=== PATIENT | female | born 1980 | race Caucasian/White ===

== ENCOUNTER 2021-11-24 19:30 | Inpatient (IN) | payer MEDICAID, SELFPAY ==
[2021-11-24] VITALS (8 sets, daily range): BP systolic 127–150; BP diastolic 63–68; PULSE 75–95; TEMP 36.3–36.9; O2SAT 99; BMI 34.5
[2021-11-24] MEDS: Lactated Ringers 1,000 ML 50 ML IV (21:15)
[2021-11-24 21:35] LABS: Absolute Lymphocyte Count 1.13 X10^3/uL (0.83-4.51); Absolute Neutrophil Count 5.1 X10^3/uL (2.0-7.7); Basophil# 0.01 X10^3/uL; Basophil% 0.1 % (0-1); Eosinophil# 0.07 X10^3/uL; Hematocrit 31.6 % (37-47); Hemoglobin 10.2 g/dL (12.0-15.0); Lymphocyte # 1.13 X10^3/ul (0.83-4.51); Lymphocyte % 16.7 % (19-41); Mean Corp Hgb Conc 32.3 g/dL (32-36); Mean Corpuscular Hgb 26.8 pg (27.0-32.0); Mean Corpuscular Volume 83.2 fL (81-99); Mean Platelet Vol. 11.8 fl (6.2-12.0); Monocyte# 0.44 X10^3/uL; Monocyte% 6.5 % (0-10); NRBC Flagged by Analyzer 0 % (0-5); Neutrophil # 5.09 X10^3/uL (2.7-7.7); Neutrophil % 75.4 % (47-70); Platelet Count 229 K/mm3 (150-450); RBC Distribution Width CV 14.3 % (11.6-14.6); RBC Distribution Width SD 43.5 fl (35.1-43.9); White Blood Count 6.8 K/mm3 (4.4-11.0)
[2021-11-24] MEDS: 0.9% Normal Saline Single 100 ML IV.SOLN. INTRA-UTER (21:51)
--- NOTE | 2021-11-24 22:16 | HP.PCM.OB_ITS ---
HPI - General General Date of Admission: 11/24/21 HPI Narrative MACHELLE NELSON, is a 41 F who presents tonight for sandoval catheter placement and induction of labor tomorrow morning. She is currently 38.6 weeks gestation and complicated by Advanced maternal age of multigravida, hypothyroidism, and history of delivery with first . Maternal Data Information PASCALE Calculator Estimated Delivery Date Method Current WG Current Estimate 12/02/21 Manual 38w 6d PFSH PFS Medical History Thyroid disorder Home Medications aspirin 81 mg chewable tablet 1 tab Check with primary doctor 11/24/21 [History Last Taken Unknown] loratadine 10 mg tablet (Claritin) 10 mg PO DAILY Check with primary doctor 11/24/21 [History Last Taken Unknown] omeprazole 10 mg capsule,delayed release mg Check with primary doctor 11/24/21 [History Last Taken Unknown] ijbvwqla-rki-Bn-FA 1 mg tablet tab PO Check with primary doctor 11/24/21 [History Last Taken Unknown] Allergy/AdvReac Type Severity Reaction Status Date / Time No Known Allergies Allergy Verified 11/24/21 20:44 Surgical History (Updated 11/24/21 @ 22:07 by Layne Lee) History of gynecologic surgery Social History Smoking Status: Never smoker History Elective abortions Hx Para 2 Spontaneous abortions Hx # Term Pregnancies Ectopic pregnancies Hx # Pregnancies Multiple births # of living children NST FHR Rate Baby A Baseline: 110 Variability:: Moderate Accelerations:: 15 x 15 Decelerations:: None NST Reactive:: Yes Uterine Activity:: irregular contractions approximately 1-4 minutes ROS Eyes Eyes: Denies blurry vision, change in vision or spots in vision ENT HEENT: Denies dizziness or headache(s) Cardiovascular Cardiovascular: Denies abdominal pain, chest pain or dyspnea Respiratory/Chest Respiratory/Chest: Denies cough, dyspnea, shortness of breath at rest or shortness of breath with exertion Gastrointestinal Gastrointestinal: Denies abdominal pain, diarrhea or vomiting Genitourinary Genitourinary: Denies change in urinary stream, difficulty urinating or dysuria Musculoskeletal Musculoskeletal: Reports none Integumentary Integumentary: Denies rash Neurologic Neurologic: Denies dizziness, headache(s), memory loss or weakness Psychiatric Psychiatric: Reports none Vital Signs Vital Signs Vital Signs: 11/24/21 20:33 11/24/21 20:33 11/24/21 20:37 Temperature Temperature Source Pulse Rate 95 Blood Pressure 150/68 H BP Systolic 150 BP Diastolic 68 Pulse Ox 99 11/24/21 20:37 11/24/21 20:38 11/24/21 20:38 Temperature Temperature Source Pulse Rate 87 88 Blood Pressure BP Systolic BP Diastolic Pulse Ox 99 11/24/21 20:32 11/24/21 20:32 11/24/21 20:50 Temperature 98.5 F Temperature Source Temporal Pulse Rate Blood Pressure 127/63 H BP Systolic 127 BP Diastolic 63 Pulse Ox 11/24/21 20:50 11/24/21 21:48 11/24/21 21:48 Temperature Temperature Source Pulse Rate 76 75 Blood Pressure BP Systolic BP Diastolic Pulse Ox 99 Weight Weight: 195 lb Body Mass Index (BMI) 34.5 Physical Exam Const alert, oriented x3 and no apparent distress General Appearance: cooperative Orientation / Consciousness: awake Exam Limitations: no limitations HEENT normocephalic Head and Scalp: normal to inspection Eyes General Eye: normal appearance of both eyes Neck full ROM and no lymphadenopathy Lymph Lymphatic: no lymphadenopathy noted Chest inspection of chest normal Resp normal respiratory effort, normal air movement and clear to auscultation bilaterally Effort and Inspection: able to speak in complete sentences and symmetric chest movement Cardio regular rate and regular rhythm GI normal to inspection, nondistended, normoactive bowel sounds Manual OB Exam: presentation cephalic, dilated 4, effaced 60 and station - 3 and 0 Back/Spine normal ROM Extremity full ROM and no calf tenderness Skin no rashes or lesions noted General Skin Exam: no breakdown Neuro oriented x3 and CN's II-XII intact bilaterally Psych mental status grossly normal and thought process normal Labs Labs Labs: Blood Type Pending Antibody Screen Pending Hct 31.6 % (37-47) L Hgb 10.2 g/dL (12.0-15.0) L A + Rubella- immune HB neg HC neg RPR- NR HIV- NR GBS - negative Assessment & Plan (1) Hypothyroid in , antepartum: (2) Advanced maternal age (AMA), 40 years or greater: (3) Multigravida of advanced maternal age: PLAN: Plan Admit to labor and delivery CE in office this week- /-[address] sand[address] but cervical assessment is now / Start IV fluids and run per orders Patient to do position changes, walking in hallways and nipple stimulation Pain medications/ epidural if indicated Recheck CE in 2-[address] Osorio aware of admission and plan of care
[2021-11-25] VITALS (49 sets, daily range): BP systolic 95–143; BP diastolic 51–86; PULSE 65–213; RESP 16; TEMP 36.3–37; O2SAT 85–100
[2021-11-25] MEDS: LACTATED RINGERS 500 ML 999 ML IV ×2 (04:50→05:42)
[2021-11-25] MEDS: Amnioinfusion- 0.9% NS 1,000 ML IV.SOLN. 1000 ML INTRA-UTER (05:40)
[2021-11-25] MEDS: fentaNYL-bupivacaine (epidural) 100 ML BAG EPIDURAL (06:03)
--- NOTE | 2021-11-25 07:04 | PCM.PN.BLA ---
Progress Note Patient comfortable with epidural. Amnioinfusion running for variable decelerations. Cat. 2 tracing with good variability. Physical Exam Const alert and no apparent distress General Appearance: cooperative and comfortable Exam Limitations: no limitations HEENT normocephalic Eyes General Eye: normal appearance of both eyes Neck full ROM General: normal visual inspection Chest Chest: symmetrical chest wall rise Resp normal respiratory effort and normal air movement Effort and Inspection: symmetric chest movement Auscultation: clear to auscultation bilaterally Cardio regular rate and regular rhythm GI normal to inspection, nondistended, normoactive bowel sounds Back/Spine normal ROM Extremity full ROM and no calf tenderness General Extremity: normal exam except as noted Skin no rashes or lesions noted Neuro CN's II-XII intact bilaterally Psych mental status grossly normal Assessment & Plan Assessment/Plan (1) Advanced maternal age (AMA), 40 years or greater: (2) Multigravida of advanced maternal age: (3) Hypothyroid in , antepartum: (4) Variable heart rate decelerations, antepartum: PLAN: Plan Cat. 2 tracing CE 780/0 Amnioinfusion running at 150 mg /hr Dr. Osorio in route to evaluate patient
[2021-11-25] MEDS: Lactated Ringers 1,000 ML 200 ML IV (07:11)
[2021-11-25] MEDS: Oxytocin 30 units/NS 500 ml 30 UNITS/500 ML IV.SOLN 334 UNITS IV (08:18)
--- NOTE | 2021-11-25 08:50 | EX.PCM.OBRPT ---
Assessment & Plan (1) Variable heart rate decelerations, antepartum: (2) Multigravida of advanced maternal age: (3) Advanced maternal age (AMA), 40 years or greater: (4) (spontaneous vaginal delivery): (5) Hypothyroid in , antepartum: Maternal Data Information PASCALE Calculator Estimated Delivery Date Method Current WG Current Estimate 12/02/21 Manual 39w 0d Vaginal Delivery Maternal Presentation Maternal Presentation: Medically Indicated Induction Maternal Presentation: at 39.0 weeks gestation for induction of labor for AMA (Age 41). Type of Induction: Amniotomy Medical Reason for Induction: - (Advanced maternal age ) Operative Information Date of Procedure: 11/25/21 Pre-Operative Diagnosis: Term gestation, Induction of labor Post-Operative Diagnosis: , live female infant Surgery / Procedure Performed: Spontaneous Vaginal Delivery Type of Anesthesia: Epidural Drain: Landry to straight drain Estimated Blood Loss: 200 Time of Delivery: 08:15 Findings Description of Procedure: Patient moved to OR for deceleration. Heart rate recovered. CE - complete +2 station. Decision made to push while in OR. Patient pushed well with contractions. Delivery of head with loose nuchal cord easily reduced followed immediately by infant body without traction. Vigorous female placed on maternal abdomen and was attended to by nursing staff. Pitocin IV started for active management of the third stage of labor. 3 vessel cord clamped and cut by FOB after 2 minute delay. Infant taken to warmer for evaluation. Placenta delivered spontaneously and intact. Vaginal sweep completed by me. Vagina and perineum intact. EBL [address]. APGARS 7/9. Dr. Osorio on unit during delivery. Presentation: Vertex and LEDA Amniotic Membrane Rupture Type: Artificial Time of Membrane Rupture: 0021 Amniotic Fluid Description: Clear Placental Delivery Description: Spontaneous Placenta Disposition: patient to take home Cord Vessel Description: 3 Vessels Cord Entanglement: Around neck x 1, loose Nuchal Cord Compression: Without compression Infant A Gender: Female (1 minute): 7 (5 minute): 9 Delayed Cord Clamping: Yes Post Vaginal Delivery Medications Given After Delivery: IV Pitocin Episiotomy Description: None Laceration: None Complication Complications: None
[2021-11-25] MEDS: Acetaminophen 500 MG Tablet 1000 MG PO ×2 (16:20→22:24)
[2021-11-25] MEDS: Naproxen 500 MG Tablet PO (18:08)
[2021-11-26 00:20] VITALS: BP 110/51; PULSE 72; RESP 14; TEMP 36.6
[2021-11-26 04:05] VITALS: BP 110/53; PULSE 74; RESP 16; TEMP 36.5
--- NOTE | 2021-11-26 04:48 | NURSING ---
Charting done by Donald RN reviewed by Jeanine RN
[2021-11-26] MEDS: Naproxen 500 MG Tablet PO (06:04)
[2021-11-26] MEDS: Levothyroxine 175 MCG Tablet PO (06:04)
--- NOTE | 2021-11-26 06:20 | PCM.PN.OB ---
Subjective Subjective Patient seen at bedside. Ambulating and voiding without difficulty. Denies headache, dizziness, CP, or SOB. Lochia decreasing. with minimal support. Desires discharge home today. Objective Data Objective Data Vital Signs: Vital Signs Temp Pulse Resp BP Pulse Ox O2 Del Method 97.7 F L 74 16 110/53 L 98 Room Air 11/26/21 04:05 11/26/21 04:05 11/26/21 04:05 11/26/21 04:05 11/25/21 20:27 11/25/21 20:27 Oxygen Delivery Method Room Air Weight: 195 lb Body Mass Index (BMI) 34.5 Intake & Output: Intake and Output for Last 24 Hours 11/24/21 11/25/21 11/26/21 23:59 23:59 23:59 Intake Total 2365.00 / 2365.00 Output Total 2900 / 2900 Balance -535.00 / -535.00 Lab / Micro Data Result Diagrams: 11/24/21 21:15 Micro: Microbiology 11/24/21 22:15 Nasal Secretion SARS-CoV-2 Antigen (Rapid) - Final ROS Eyes Eyes: Denies blurry vision, change in vision or spots in vision ENT HEENT: Denies dizziness or headache(s) Cardiovascular Cardiovascular: Denies abdominal pain, chest pain or dyspnea Respiratory/Chest Respiratory/Chest: Denies cough, dyspnea, shortness of breath at rest or shortness of breath with exertion Gastrointestinal Gastrointestinal: Denies abdominal pain, diarrhea or vomiting Genitourinary Genitourinary: Denies change in urinary stream, difficulty urinating or dysuria Musculoskeletal Musculoskeletal: Reports none Integumentary Integumentary: Denies rash Neurologic Neurologic: Denies dizziness, headache(s), memory loss or weakness Physical Exam Const alert and no apparent distress General Appearance: cooperative and comfortable Exam Limitations: no limitations HEENT normocephalic Eyes General Eye: normal appearance of both eyes Neck full ROM General: normal visual inspection Chest Chest: symmetrical chest wall rise Resp normal respiratory effort and normal air movement Effort and Inspection: symmetric chest movement Auscultation: clear to auscultation bilaterally Cardio regular rate and regular rhythm GI normal to inspection, nondistended, normoactive bowel sounds Back/Spine normal ROM Extremity full ROM and no calf tenderness General Extremity: normal exam except as noted Skin no rashes or lesions noted Neuro CN's II-XII intact bilaterally Psych mental status grossly normal Assessment & Plan (1) (spontaneous vaginal delivery): (2) Hypothyroid in , antepartum: (3) Care and examination of lactating mother: PLAN: Plan PPD 2 Routine care support D/C home with follow up in office
--- NOTE | 2021-11-26 06:24 | DCINST_ITS ---
Discharge Instructions Diet Discharge Diet: No restrictions Activity Discharge Activity: Return to Normal Activity, May Shower and May Take a Tub Bath May resume sexual activity in: 4-6 weeks Weight Bearing Status: Weight bearing as tolerated Dressing / Incision Call your doctor if you observe: Inability to urinate, Using more than 1 pad per hour, Shortness of breath, Dizziness, Swelling in the ankles, Chest pain, Calf discomfort and Uncontrolled pain Follow Up Care Please Follow Up With: Camila Rinaldi CNM When: Within 10 days Test Results: Test results from this visit will be discussed in further detail at your follow- up appointment, if applicable. Discharge Plan Admission Admit Date/Time: 11/24/21 19:30 Primary Reason for Your Visit: Labor and Drlivery Attending Provider: Camila Rinaldi Primary Care Provider: WILVER PETERSON Discharge Orders/Prescriptions Prescriptions: Continued lzqjykau-iah-[id number]-FA 1 mg Tablet PO Discontinued omeprazole 10 mg Capsule,Delayed Release(Dr/Ec) aspirin [Baby Aspirin] 81 mg Tablet,Chewable 1 tab loratadine [Claritin] 10 mg Tablet 10 mg PO DAILY Referrals / Follow Up: WILVER PETERSON [Other] Disposition Disposition (needs filled in before D/C Order can be placed): Home, Self Care
[2021-11-26 08:34] VITALS: BP 107/66; PULSE 66; RESP 18; TEMP 36.4
== END 2021-11-26 10:40 | disposition home or self-care (01) | DRG 560 ==
PROVIDERS: Admitting Provider Advanced Practice Midwife; Visit Provider Advanced Practice Midwife
DX: O76 Abnormality in fetal heart rate and rhythm complicating labor and delivery (principal); Z37.0 Single live birth; E03.9 Hypothyroidism, unspecified; Z3A.38 38 weeks gestation of pregnancy; O99.284 Endocrine, nutritional and metabolic diseases complicating childbirth; Z79.82 Long term (current) use of aspirin; Z28.310 Unvaccinated for COVID-19; Z28.9 Immunization not carried out for unspecified reason
CPT/HCPCS: 59025; 59050; 76815; 85025; 86850; 86900; 86901; 87811; 99218; J7030; J7120; G0378

== ENCOUNTER 2022-11-15 11:23 | Day surgery (SDC) | payer MEDICAID, SELFPAY ==
--- NOTE | 2022-11-14 16:36 | PCM.HP.BLA ---
History and Physical Date of Admission: 11/15/22 Pre-Op History and Physical ? HPI: The patient is a 42 year old female presenting for pre-operative visit. She is scheduled for Suction D&C, for missed miscarriage on 11/15/22. Procedure discussed along with risks, benefits and complications. Other alternatives discussed for management. Consent form signed? Yes. ? ? PAST MEDICAL HISTORY PAST MEDICAL HISTORY Diagnosis Date ? Abnormal Pap smear of cervix 2018 ? My TOUCH UP PAINTER HAND ? Hypothyroidism ? ? Tubal , rupture of 01/25/2020 ? ? PAST SURGICAL HISTORY PAST SURGICAL HISTORY Procedure Laterality Date ? ORAL SURGERY PROCEDURE ? ? ? RADIATION THERAPY Bilateral ? ? Thyroid Radiation ? SALPINGECTOMY Right ? ? 01/2020 ? TONSILLECTOMY & ADENOIDECTOMY <AGE 12 ? ? ? VAGINOSCOPY ? CURRENT MEDICATIONS Current Outpatient Medications Medication Sig Dispense Refill ? cholecalciferol (VITAMIN D-3) 5,000 unit tab Take 5,000 Units by mouth once daily. (Patient not taking: Reported on 11/06/2022) ? ? ? levothyroxine (SYNTHROID) 175 mcg tablet Take 1 tablet by mouth daily before breakfast. 30 tablet 1 ? ferrous sulfate (IRON ORAL) Take by mouth. (Patient not taking: Reported on 01/05/2022) ? ? ? cetirizine (ZYRTEC) 10 mg tablet Take 10 mg by mouth once daily. (Patient not taking: Reported on 01/05/2022) ? ? ? aspirin, enteric coated (ASPIRIN, ENTERIC COATED) 81 mg EC tablet Take 1 tablet by mouth once daily. Start at 12 weeks. (Patient not taking: Reported on 01/05/2022) ? ? ? Omeprazole Magnesium (PRILOSEC OTC) 20 mg tablet Take 1 tablet by mouth once daily. (Patient not taking: Reported on 01/05/2022) ? ? ? HYDROXYprogest,PF,,preg presv, (ARLYN, PF,) 275 mg/1.1 mL auto-injector Inject 1.1 mL subcutaneously one time a week for 21 doses. 4.4 mL 4 ? vit no.129/iron/folic ( ONE DAILY ORAL) Take by mouth. ? ? ? No current facility-administered medications for this visit. ? ? ALLERGIES: Patient has no known allergies. ? PERSONAL HISTORY: SOCIAL HISTORY Social History ? Tobacco Use ? Smoking status: Never ? Smokeless tobacco: Never Vaping Use ? Vaping Use: Never used Substance Use Topics ? Alcohol use: Never ? Drug use: Never ? FAMILY HISTORY: FAMILY HISTORY FAMILY HISTORY Problem Relation Age of Onset ? Liver Disease Mother ? ? Alcohol abuse Mother ? ? Pancreatic Cancer Father ? ? Migraines Sister ? ? Diabetes Maternal Grandmother ? ? Type 2 ? Liver Disease Maternal Grandmother ? ? Hypertension Maternal Grandmother ? ? Multiple Sclerosis Maternal Grandfather ? ? No Known Problems Paternal Grandmother ? ? No Known Problems Paternal Grandfather ? ? No Known Problems Daughter ? ? No Known Problems Daughter ? ? No Known Problems Son ? ? ? REVIEW OF SYMPTOMS: negative except as noted above PHYSICAL EXAMINATION: ? VITALS: Last menstrual period 09/09/2022, currently . ? GENERAL: The patient is well nourished, well hydrated in no acute distress. , The patient is oriented to time, place, and person. NECK: Supple. No lynphadenopathy, normal thyroid, no thyromegaly. LUNGS: Clear to auscultation bilaterally. no wheezes, rhonchi or rales HEART: Regular rate and rhythm GENITALIA: exam deferred WET PREP: Not indicated ? IMPRESSION: Missed - at 9.3 weeks gestation by LMP. TVUS confirms IUP measuring 6.0 weeks gestation with No cardiac activity ? PLAN: CBC, T&S, Schedule for D&C ? I have reviewed and updated past medical and surgical history, medications and allergies Camila Rinaldi APRN.CNM ? ?9:38 AM
--- NOTE | 2022-11-15 | POC_PTH ---
PATIENT: MACHELLE NELSON LOC: [facility] [place] U#:[id number] AGE/SX: 42/F ROOM: RE11/15/[address]: Dr. Maranda Herbert, MDDOB: 1980 BED: DIS: 11/15/2022 SPEC #: [id number] RECD: 11/15/22 14:45 STATUS: TANK ABEBEGretchen #: [id number] KEYONA: 11/15/22 00:[address]: Maranda Herbert DEPT: SURGICAL PATHOLOGY RECD BY: Fernando Pavon Tissues: Product of conception, NOS Procedures: Surgery Specimen Level IV HEADER OPERATION: Suction dilation and curettage PRE-OP DIAGNOSIS: Missed miscarriage TISSUE SUBMITTED: Products of conception MICROSCOPIC DIAGNOSIS Endometrium, curettage: Chorionic villi, decidualized stroma and trophoblastic cells (products of conception). AM:jerardo 11/19/2022 MICROSCOPIC DESCRIPTION Slides are reviewed. GROSS DESCRIPTION Received in fixative is one container labeled with the patient's name and designated products of conception. The specimen consists of multiple irregular fragments of pink soft tissue that in aggregate measure 6.0 x 5.0 x 1.5 cm. No tissue is identified. Production Intern tissue is submitted in three cassettes. / SJ:rg 11/16/2022 TC:5 CPT: 82202
[2022-11-15 11:50] VITALS: BP 124/70; PULSE 74; RESP 18; TEMP 36.3; O2SAT 100; BMI 33.3
[2022-11-15] MEDS: Lactated Ringers 1,000 ML 15 ML IV (11:57)
[2022-11-15] MEDS: Doxycycline 100 MG CAPSULE 200 MG PO (11:58)
[2022-11-15] MEDS: Acetaminophen 500 MG Tablet 1000 MG PO (11:59)
[2022-11-15] MEDS: Ketorolac 30 MG/ML Syringe IV (12:03)
--- NOTE | 2022-11-15 12:51 | OP.PCM_ITS ---
Report of Operation Date of Procedure: 11/15/22 Pre-Operative Diagnosis: Missed Post-Operative Diagnosis: same Surgery/Procedure Performed:: suction D&C Description of Surgical Findings:: Uterus 8 week size - 7mm suction catheter then switched to 9mm suction catheter Surgeon: Maranda Herbert truck driver's offsider: None Type of Anesthesia: MAC Specimen's removed: products of conception Drains: none Estimated Blood Loss (mL): <5cc Fluids Replaced: 600 Description of Procedure: pt was placed in lithotomy position - prepped and draped in normal sterile fashion. Bladder drained prior to procedure. weight speculum placed in posterior fornix, tenaculum used to grasp anterior lip of cervix. Cervix gentle dilated. once adequate dilation achieve 7mm suction catheter placed. POC expelled- at this time switched to 9mm suction catheter due to amount of tissue, this was continue until suction was clear of tissue. At this time no further tissue obtained. Tenaculum removed. Excellent hemostasis achieved. Instrument and sponge count were correct. Vaginal sweep was negative, perfomed by myself. Grafts/Implants Used: none Procedure Start Time: 12:43 Procedure Stop Time: 12:49 Complications none Admit VTE Documentation VTE Present on Admission: Yes VTE Mechan Device Prophylaxis: SCD's VTE Pharm Prophylaxis ordered?: No Reason prophylaxis not ordered:: Procedure Not Indicated
--- NOTE | 2022-11-15 12:56 | DCINST_ITS ---
Discharge Instructions Diet Discharge Diet: No restrictions Activity May resume sexual activity in: 1 week Dressing / Incision Call your doctor if you observe: Fever of 101 or Higher, Inability to urinate, Using more than 1 pad per hour and Uncontrolled pain Follow Up Care Please Follow Up With: Maranda Herbert MD When: 1-2 weeks post OP if you need an appointment please call [phone] Test Results: Test results from this visit will be discussed in further detail at your follow- up appointment, if applicable. Discharge Plan Admission Attending Provider: Maranda Herbert Primary Care Provider: WILVER PETERSON Discharge Orders/Prescriptions Prescriptions: No Action jmiporoh-pbk-[id number]-FA 1 mg Tablet 1 tab PO DAILY levothyroxine 175 mcg tablet 175 mcg PO DAILY Patient Comments: TAKE 1 TABLET BY MOUTH ONCE DAILY Referrals / Follow Up: WILVER PETERSON [Other] Disposition Disposition (needs filled in before D/C Order can be placed): Home, Self Care
[2022-11-15 13:00] VITALS: BP 102/52; BP 124/70; PULSE 66; RESP 16; TEMP 36.4; O2SAT 97
[2022-11-15 13:05] VITALS: BP 105/60; BP 124/70; PULSE 64; RESP 16; O2SAT 98
[2022-11-15 13:10] VITALS: BP 105/59; BP 124/70; PULSE 70; RESP 16; O2SAT 97
[2022-11-15 13:15] VITALS: BP 107/63; BP 124/70; PULSE 62; RESP 16; TEMP 36.7; O2SAT 100
[2022-11-15 13:36] VITALS: BP 124/70
== END 2022-11-15 13:41 | disposition home or self-care (01) ==
LOC: SDC 11:27 → AC 11:28
PROVIDERS: Referring Provider Obstetrics & Gynecology; Visit Provider Obstetrics & Gynecology
PROC: (CPT 59820; principal; 2022-11-15 12:25)
DX: O02.1 Missed abortion (principal); O99.280 Endocrine, nutritional and metabolic diseases complicating pregnancy, unspecified trimester; E03.9 Hypothyroidism, unspecified; Z79.899 Other long term (current) drug therapy
CPT/HCPCS: 59820; 01965; 88305; J7120; J2405